=== PATIENT | male | born 1950 | race Caucasian/White ===

== ENCOUNTER 2020-04-20 13:44 | Outpatient (CLI) | payer MEDICARE, OTHER | END 2020-04-20 23:59 | disposition home or self-care (01) | LOC: RAD 13:44 | PROVIDERS: ATTEND Family Medicine | DX: R13.12 Dysphagia, oropharyngeal phase (principal); R41.841 Cognitive communication deficit; R47.1 Dysarthria and anarthria | CPT/HCPCS: 74230 ==

== ENCOUNTER 2023-08-28 12:43 | Outpatient (CLI) | payer MEDICARE, OTHER | END 2023-08-28 23:59 | disposition home or self-care (01) | LOC: RAD 12:43 | PROVIDERS: ATTEND Family Medicine | DX: R13.12 Dysphagia, oropharyngeal phase (principal) | CPT/HCPCS: 74230 ==